=== PATIENT | female | born 1940 | race Caucasian/White ===

== ENCOUNTER 2016-07-21 07:00 | Emergency (ER) | payer OTHER ==
[~2016-07-21] VITALS: Ht 152.4 cm; Wt 77.1 kg
[2016-07-21] MEDS ORDERED: LEVOTHYROXINE100 MC1 PO (07:40)
[2016-07-21] MEDS ORDERED: ALLOPURINOL100 M1 PO (07:41)
[2016-07-21] MEDS ORDERED: LOSARTAN POTASS50 M1 PO (07:42)
[2016-07-21] MEDS ORDERED: RESTASIS1 EACH OPH (07:42)
[2016-07-21 08:18] LABS: ABSOLUTE BASOPHIL COUNT 0 /CUMM (0.0-0.2); ABSOLUTE EOSINOPHIL COUNT 0 /CUMM (0.0-0.7); ABSOLUTE GRANULOCYTE CT 10.4 /CUMM (1.4-6.5); ABSOLUTE LYMPH COUNT 0.9 /CUMM (1.2-3.4); ABSOLUTE MONOCYTE COUNT 0.2 /CUMM (0.10-0.60); BASOPHIL % 0.1 % (0.0-2.0); EOSINOPHIL % 0.1 % (0-5); HEMATOCRIT 38.3 % (37-47); MEAN CORPUSCULAR HGB 30.6 PG (27.0-31.0); MEAN CORPUSCULAR HGB CONC 33.3 G/DL (33.0-37.0); MEAN CORPUSCULAR VOLUME 91.9 FL (81.0-99.0); MEAN PLATELET VOLUME 9.2 FL (7.4-10.4); PLATELET COUNT 221 /CUMM (130-400); RBC DISTRIBUTION WIDTH 13.3 % (11.5-14.5); RED BLOOD CELL CT 4.17 /CUMM (4.20-5.40); WHITE BLOOD CELL COUNT 11.6 /CUMM (4.8-10.8)
--- NOTE | 2016-07-21 08:27 | ED GI/GU/ABDOMINAL COMPLAINT ---
History of Present Illness General Chief Complaint: Abdominal Pain/Flank Pain Stated Complaint: "PER PT ABD PAIN, VOMITING" Source: patient, family, old records Exam Limitations: no limitations Vital Signs & Intake/Output Vital Signs & Intake/Output Vital Signs Date Time Temp Pulse Resp B/P B/P Pulse O2 O2 Flow FiO2 Mean Ox Delivery Rate 07/21 1121 97.0 70 18 160/72 96 Room Air 07/21 0956 98.0 80 199/84 07/21 0906 97.0 84 24 193/83 100 Room Air 07/21 0744 84 190/100 07/21 0710 97.0 96 20 184/99 98 Room Air Allergies Coded Allergies: NO KNOWN ALLERGIES (12/09/11) Reconcile Medications Allopurinol 100 MG TABLET 1 TAB PO DAILY GOUT (Reported) Cyclosporine (Restasis) 0.05 % DROPERETTE 1 GTT OPH BID EYE PROBLEMS ( Reported) Levothyroxine Sodium 100 MCG TABLET 1 TAB PO DAILY THYROID HEALTH (Reported) Losartan Potassium 50 MG TABLET 1 TAB PO DAILY HEART HEALTH (Reported) Triage Note: PT TO ED C/O RUQ ABD PAIN SINCE LAST NIGHT. C/O FEELING CONSTIPATED AND "A LOT OF BELCHING". C/O N/V, DENIES DIARRHEA. PT STATES H/O GALLSTONES. Triage Nurses Notes Reviewed? yes LMP (ages 10-50): post menopausal ? n Is pt currently ? No Onset: Morning Duration: hour(s):, continues in ED, waxing and waning Timing: recent history Quality/Severity: aching, severe, vomiting Location: right upper quadrant Radiation: back Activities at Onset: none Prior Abdominal Problems: similar symptoms Past Sexual History: Unobtainable at this time No Modifying Factors: none Modifying Factors: Worsens With: movement, palpation. Associated Symptoms: abdominal pain, diarrhea, loss of appetite, nausea/vomiting HPI: 8 hours prior to admission patient developed moderate to severe right upper quadrant aching waxing and waning pain radiating to the back and umbilicus associated with anorexia nausea vomiting increased stooling. She denies fever chills chest pain cough shortness of breath headache dysuria rash bleeding. She reports having previous history of gallstones and this is the worst attack. Past History Travel History Traveled to [place] past 21 day No Medical History Any Pertinent Medical History? see below for history Cardiovascular: hypertension Gastrointestinal: GALLSTONES Endocrine: hypothyroidism Surgical History Surgical History: non-contributory Psychosocial History What is your primary language Chilean Tobacco Use: Quit >30 days ago ETOH Use: denies use Illicit Drug Use: denies illicit drug use Family History Hx Contributory? No Review of Systems Review of Systems Constitutional: Reports: see HPI, malaise. EENTM: Reports: no symptoms. Respiratory: Reports: no symptoms. Cardiovascular: Reports: no symptoms. GI: Reports: see HPI, abdominal pain, diarrhea, nausea, vomiting. Genitourinary: Reports: no symptoms. Musculoskeletal: Reports: no symptoms. Skin: Reports: no symptoms. Neurological/Psychological: Reports: no symptoms. Hematologic/Endocrine: Reports: no symptoms. Immunologic/Allergic: Reports: no symptoms. All Other Systems: Reviewed and Negative Physical Exam Physical Exam General Appearance: well developed/nourished, alert, awake, anxious, moderate distress, obese Head: atraumatic, normal appearance Eyes: Bilateral: normal appearance, PERRL, EOMI, normal inspection. Ears, Nose, Throat, Mouth: hearing grossly normal, moist mucous membrane Neck: normal inspection, supple, full range of motion, normal alignment Respiratory: normal breath sounds, chest non-tender, no respiratory distress, quiet respiration, lungs clear Cardiovascular: regular rate/rhythm, normal peripheral pulses, norml femoral pulses equa Peripheral Pulses: 4+ carotid (R), 4+ carotid (L) Gastrointestinal: normal bowel sounds, soft, tenderness Back: normal inspection, normal range of motion Extremities: normal range of motion, no ligament instability Neurologic/Psych: no motor/sensory deficits, awake, alert, oriented x 3, normal gait, normal mood/affect, senior technical analyst II-XII nml as tested Skin: intact, normal color, warm/dry Core Measures ACS in differential dx? No ASA ordered for poss ACS? No-ACS ruled out Severe Sepsis Present: No Septic Shock Present: No Progress Differential Diagnosis: biliary colic, cholecystitis, diverticulitis, gastritis Plan of Care: Orders Procedure Date/time Status LACTIC ACID 07/21 1045 Active Add-on Test (ER Only) 07/21 0811 Active TROPONIN LEVEL 07/21 0745 Complete LIPASE 07/21 0745 Complete LACTIC ACID 07/21 0745 Complete HEPATIC FUNCTION PANEL 07/21 0745 Complete CBC WITHOUT DIFFERENTIAL 07/21 0745 Complete BASIC METABOLIC PANEL 07/21 0745 Complete EKG 05/03 0712 Active URINALYSIS 07/21 708 Complete Laboratory Tests 07/21/16811: Anion Gap 14, Estimated GFR > 60, BUN/Creatinine Ratio 18.9, Glucose 161 H, Lactic Acid 1.9, Calcium 9.3, Total Bilirubin 0.4, Direct Bilirubin 0.3, AST 33, ALT 60 H, Alkaline Phosphatase 88, Troponin I < 0.01, Total Protein 7.3, Albumin 4.5, Lipase 47, CBC w Diff NO MAN DIFF REQ, RBC 4.17 L, MCV 91.9, MCH 30.6, RDW 13.3, MPV 9.2, Gran % 89.7 H, Lymphocytes % 8.1 L, Monocytes % 2.0, Eosinophils % 0.1, Basophils % 0.1, Absolute Granulocytes 10.4 H, Absolute Lymphocytes 0.9 L, Absolute Monocytes 0.2, Absolute Eosinophils 0, Absolute Basophils 0, PUBS MCHC 33.3 07/21/16708: Urinalysis LIGHT H, Urine Color YEL, Urine Clarity HAZY H, Urine pH 6.0, Ur Specific [place] 1.025, Urine Protein 100 H, Urine Ketones NEG, Urine Nitrite NEG, Urine Bilirubin NEG, Urine Urobilinogen 0.2, Ur Leukocyte Esterase NEG, Ur Microscopic SEDIMENT EXAMINED, Urine RBC 10-15 H, Urine WBC 1-3 H, Ur Epithelial Cells FEW, Urine Bacteria RARE H, Hyaline Casts RARE H, Urine Mucus RARE, Urine Hemoglobin MOD H, Urine Glucose NEG Diagnostic Imaging: Viewed by Me: Ultrasound. Discussed w/RAD: Ultrasound. Radiology Impression: Chronically contracted gallbladder with multiple gallstones. The findings are in keeping with chronic calculus cholecystitis. No pericholecystic fluid is seen. Initial ED EKG: normal axis, normal intervals, normal p-waves, normal QRS complex, normal sinus rhythm, no ST T wave changes Comments: Discussed with Dr. Caldera. Follow up outpatient. Departure Departure Time of Disposition: 1127 Disposition: HOME OR SELF CARE Condition: Stable Clinical Impression Primary Impression: Chronic cholecystitis with calculus Referrals: DONNA GASPAR,RON FARIAS MD,LULU Perez (PCP/Family) Departure Forms: Customer Survey General Discharge Information Prescriptions: Current Visit Scripts Hyoscyamine Sulfate (Levsin-Sl) 1-2 TAB SL Q4P PRN abdominal cramps #60 TAB Ondansetron (Zofran Odt) 1 TAB SL TID PRN nausea #15 TAB Oxycodone HCl/Acetaminophen (Percocet 5-325 MG Tablet) 1 TAB PO Q6P PRN severe pain #15 TAB ED Attending Observation Initial Observation Note: I have seen and personally examined KINJAL BROWER on 07/21/16 at 0940. I agree with the current emergency department documentation. The disposition (admission or discharge) is uncertain at this time, she needs a period of observation for the following reason(s): The ED Nurse caring for this patient has been personally informed as to what the patient is being observed for.
[2016-07-21 08:35] LABS: GRANULOCYTE % 89.7 % (42.2-75.2)
--- NOTE | 2016-07-21 10:29 | ULTRASOUND REPORT ---
EXAMINATION: US ABDOMEN LIMITED CLINICAL INFORMATION: Right upper quadrant pain radiating to back with nausea, vomiting and diarrhea.. COMPARISON: Similar examination right quadrant ultrasound 12/19/2009. Selected images of the abdomen from CT thorax 06/21/2016. TECHNIQUE: Real-time imaging of the right upper quadrant abdominal viscera. FINDINGS: PANCREAS: Largely obscured by bowel gas. Visualized head and body of the pancreas are unremarkable. LIVER: The liver is diffusely echogenic and difficult to penetrate. Findings are consistent with hepatic steatosis. The liver demonstrates normal size and contour. No focal lesion or intrahepatic biliary duct dilatation. GALLBLADDER: The gallbladder remains contracted with multiple shadowing calculi. The gallbladder wall is difficult to evaluate. No pericholecystic fluid is seen. The patient is reportedly tender over the gallbladder region at sonography. COMMON BILE DUCT: Not visualized. RIGHT KIDNEY: Normal in size and cortical thickness. No hydronephrosis. No renal calculi or solid parenchymal lesions. Simple lower pole renal cyst measures 2.4 x 2.4 x 2.6 cm. No internal color Doppler flow or septations. The kidney measures 10.0 cm in maximum dimension. FREE FLUID: None. IMPRESSION: Chronically contracted gallbladder with multiple gallstones. The findings are in keeping with chronic calculus cholecystitis. No pericholecystic fluid is seen. Diffusely echogenic liver is consistent with hepatic steatosis and unchanged from prior.
[2016-07-21 11:21] VITALS: BP 160/72
[2016-07-21] MEDS ORDERED: ZOFRAN ODT4 M1 SL ×2 (11:31→11:40)
[2016-07-21] MEDS ORDERED: LEVSIN-SL0.125 MG SL ×2 (11:31→11:40)
[2016-07-21] MEDS ORDERED: PERCOCET 5-3251 EACH PO ×2 (11:31→11:40)
== END 2016-07-21 11:51 ==
LOC: ERH 07:00
PROVIDERS: Emergency Medicine
DX: K80.10 Calculus of gallbladder with chronic cholecystitis without obstruction (principal)
CPT/HCPCS: 81001; 93005; 93010; 96374; 96375; J0131; J1885; J2405

== ENCOUNTER → 2016-08-11 | Day surgery (SDC) | payer OTHER ==
[~2016-08-11] VITALS: Ht 152.4 cm; Wt 73.5 kg
[~2016-08-11] MED LIST: ALLOPURINOL100 M1 PO; LEVOTHYROXINE100 MC1 PO; LEVSIN-SL0.125 MG SL; LOSARTAN POTASS50 M1 PO; PERCOCET 5-3251 EACH PO; RESTASIS1 EACH OPH; ZOFRAN ODT4 M1 SL
--- NOTE | 2016-08-11 14:29 | Operative Report ---
Operative/Inv Procedure Report Surgery Date: 08/11/16 Name of Procedure: Laparoscopic cholecystectomy Pre-Operative Diagnosis: Biliary colic Post-Operative Diagnosis: Same Estimated Blood Loss: scant Surgeon/Shortage Worker: DONNA GASPAR,RON Sumner/Ani BHATIA Anesthesia: general endotracheal tube Specimens: Gallbladder and stones Operative/Procedure Note Note: After informed consent patient is brought to the operating room and laid supine. General anesthesia was obtained and her abdomen was prepped and draped. The skin above the umbilicus infiltrated with local anesthesia and a curvilinear incision made sharply. We came down through the subcutaneous tissues bluntly and grasped the fascia with Devaughn's. A fasciotomy was created sharply and stay sutures placed. The peritoneum was entered sharply and a blunt Kevin port was placed. Pneumoperitoneum was achieved. 3, 5 mm ports were placed in the epigastrium and right upper quadrant after local anesthesia was instilled and under direct vision the camera. She's placed in reverse Trendelenburg and rotated towards the left. The gallbladder is identified. It was grasped at the dome and retracted towards the head. Infundibulum was then grasped. Adhesions to the undersurface were taken down with blunt and cautery dissection. We dissected both sides the triangle Calot peritoneal tissue with cautery. The artery was medial and its normal anatomic position. It was cauterized medially to allow it to be mobilized away from the duct. [place] was cleared of areolar tissue with cautery. The arteries and duct were doubly ligated with clips. Gallbladder is removed from the fossa electrocautery. It was placed in Endo Catch bag and cinched up. Right upper quadrant was and suction irrigated normal saline. Hemostasis achieved with cautery. The ports were then removed and the gallbladder delivered and passed off the field. In order to deliver the gallbladder, which was packed with stones, the fascia needed larger incision. The fascia was closed with interrupted 0 Vicryl suture. Skin incisions closed with 4-0 Vicryl. Steri-Strips and sterile dressing applied. Sponge and needle counts are correct. CC: JARRETT GASPAR,LULU Perez
== END ==
LOC: STS 07:00
DX: K80.10 Calculus of gallbladder with chronic cholecystitis without obstruction (principal); I10 Essential (primary) hypertension; M10.9 Gout, unspecified; Z87.891 Personal history of nicotine dependence
CPT/HCPCS: 88304; J0690; J2250

== ENCOUNTER 2017-04-23 23:25 | Day surgery (SDC) | payer OTHER ==
[~2017-04-23] VITALS: Ht 152.4 cm; Wt 75.8 kg
[2017-04-24 00:12] LABS: ABSOLUTE BASOPHIL COUNT 0 /CUMM (0.0-0.2); ABSOLUTE EOSINOPHIL COUNT 0 /CUMM (0.0-0.7); ABSOLUTE GRANULOCYTE CT 11.8 /CUMM (1.4-6.5); ABSOLUTE LYMPH COUNT 1.4 /CUMM (1.2-3.4); ABSOLUTE MONOCYTE COUNT 0.7 /CUMM (0.10-0.60); BASOPHIL % 0.1 % (0.0-2.0); EOSINOPHIL % 0.2 % (0-5); GRANULOCYTE % 84.7 % (42.2-75.2); HEMATOCRIT 40.4 % (37-47); MEAN CORPUSCULAR HGB 30.6 PG (27.0-31.0); MEAN CORPUSCULAR HGB CONC 33.5 G/DL (33.0-37.0); MEAN CORPUSCULAR VOLUME 91.4 FL (81.0-99.0); MEAN PLATELET VOLUME 9.2 FL (7.4-10.4); PLATELET COUNT 216 /CUMM (130-400); RBC DISTRIBUTION WIDTH 13.2 % (11.5-14.5); RED BLOOD CELL CT 4.42 /CUMM (4.20-5.40)
--- NOTE | 2017-04-24 00:41 | ED GI/GU/ABDOMINAL COMPLAINT ---
History of Present Illness General Chief Complaint: General Adult Stated Complaint: "LOWER ABD PAIN,+N-V+D" Source: patient Exam Limitations: no limitations Vital Signs & Intake/Output Vital Signs & Intake/Output Vital Signs Date Time Temp Pulse Resp B/P B/P Pulse O2 O2 Flow FiO2 Mean Ox Delivery Rate 04/24 0240 98.6 55 18 200/80 98 Room Air 04/24 0041 98 Room Air 04/23 2354 98.4 66 18 174/82 98 Room Air ED Intake and Output 04/24 0000 04/23 1200 Intake Total Output Total Balance Patient 167 lb Weight Weight Reported by Patient Measurement Method Allergies Coded Allergies: No Known Allergies (02/16/17) Reconcile Medications Allopurinol 100 MG TABLET 1 TAB PO BID gout (Reported) Cyclosporine (Restasis) 0.05 % DROPERETTE 1 GTT OPH BID EYE PROBLEMS ( Reported) Levothyroxine Sodium 100 MCG TABLET 1 TAB PO DAILY THYROID HEALTH (Reported) Losartan Potassium 50 MG TABLET 1 TAB PO BID blood pressure (Reported) Metoprolol Succinate 25 MG TAB 1 TAB PO BID blood pressure (Reported) Triage Note: PT TO ER C/C RLQ PAIN X 1 DAY, + NAUSEA. 1 EPISODE OF DIARRHEA YESTERDAY. DENIES FEVERS/CHILLS. DENIES URINARY S/S Triage Nurses Notes Reviewed? yes ? N Is pt currently ? No Onset: Abrupt Duration: day(s): (2) Timing: multiple episodes today Location: right lower quadrant Radiation: GENERALIZED ABDOMEN HPI: This is a 76-year-old female with history of hypertension, previous cholecystectomy in July 2016 who presents to the ER with chief complaint of right lower quadrant abdominal pain that began yesterday evening. She states the pain goes from her right lower quadrant into her generalized abdomen no fever or chills. She did feel nauseous. Yesterday she actually had some diarrhea which is unusual for her. She initially was not passing gas today but then started passing gas this evening. She has felt bloated and has burped a little bit better. She had a very poor appetite today with a little bit of soup of function one to 2 bites of a bagel this evening. History of colonoscopy every 5 years ago last was last year. She states they have been within normal limits. No other gastrointestinal history. Past History Travel History Traveled to [place] past 21 day No Medical History Any Pertinent Medical History? see below for history Cardiovascular: hypertension Gastrointestinal: GALLSTONES Endocrine: hypothyroidism Surgical History Surgical History: cholecystectomy Psychosocial History What is your primary language Citizen Of [place] Tobacco Use: Quit >30 days ago ETOH Use: occasional use Family History Hx Contributory? No Review of Systems Review of Systems Constitutional: Denies: chills, fever. EENTM: Reports: no symptoms. Respiratory: Denies: cough, short of breath. Cardiovascular: Denies: chest pain. GI: Reports: abdominal pain, constipation, bloody stool, changes in stool. Genitourinary: Denies: discharge, dysuria, frequency, hematuria. Musculoskeletal: Denies: back pain. Skin: Reports: no symptoms. Neurological/Psychological: Reports: no symptoms. Hematologic/Endocrine: Denies: bruising, bleeding, polyuria, polydipsia. Immunologic/Allergic: Denies: splenectomy. All Other Systems: Reviewed and Negative Physical Exam Physical Exam General Appearance: well developed/nourished, alert, awake, mild distress Head: atraumatic, normal appearance Eyes: Bilateral: normal appearance, PERRL, EOMI. Ears, Nose, Throat, Mouth: hearing grossly normal, moist mucous membrane Neck: normal inspection, supple, full range of motion Respiratory: normal breath sounds, chest non-tender, no respiratory distress Cardiovascular: regular rate/rhythm Peripheral Pulses: 2+ radial (R), 2+ radial (L) Gastrointestinal: soft, distention, tenderness (MILD RLQ), NO REBOUND/GUARDING Back: normal inspection, normal range of motion Extremities: normal range of motion Neurologic/Psych: no motor/sensory deficits, awake, alert, oriented x 3, normal gait, normal mood/affect Skin: intact, normal color, warm/dry Core Measures ACS in differential dx? No Sepsis Present: No Sepsis Focused Exam Completed? No Progress Differential Diagnosis: diverticulitis, SBO, COLITIS, KIDNEY STONE Plan of Care: Orders Procedure Date/time Status Nothing by Mouth 04/24 B Active Pathway - chart 04/24 335 Active Patient Data 04/24 335 Active Vital Signs 04/24 033 Active Intake & Output 04/24 033 Active Activity/Ambulation 04/24 335 Active LIPASE 04/24 335 Active Code Status 04/24 335 Active XRY-CHEST XRAY, TWO VIEWS 04/24 0307 Active EKG 04/24 0244 Active Add-on Test (ER Only) 04/24 0240 Active TYPE & SCREEN (NOT X-MATCH) 04/24 024 Active Add-on Test (ER Only) 04/24 0135 Active CULTURE,URINE 04/24 0028 Active PARTIAL THROMBOPLASTIN TIME 04/24 0004 Complete PROTHROMBIN TIME 04/[address] in observation 04/24 UNK Active VTE Mechanical Prophylaxis 04/24 UNK Active URINALYSIS 04/23 2331 Complete TROPONIN LEVEL 04/23 2331 Complete COMPREHENSIVE METABOLIC PANEL 04/23 2331 Complete CBC WITHOUT DIFFERENTIAL 04/23 2331 Complete Current Medications Sig/Tiffany Start time Last Medication Dose Stop Time Status Admin Allopurinol 100 MG BID 04/24 1000 UNVr (Zyloprim) Levothyroxine Sodium 0.1 MG DAILY 04/24 1000 UNVr (Synthroid) Losartan Potassium 50 MG BID 04/24 1000 UNVr (Cozaar) Metoprolol Succinate 25 MG BID 04/24 1000 UNVr (Toprol XL) Ampicillin Sodium/ 3,000 MG Q6 04/24 0900 UNVr Sulbactam Sodium 04/25 0859 (Unasyn) Sodium Chloride 100 ML (Normal Saline 0.9%) Heparin Sodium 5,000 UNIT Q8 04/24 0600 UNVr (Porcine) Morphine Sulfate 2 MG Q4P PRN 04/24 0345 UNVr (Morphine) Morphine Sulfate 4 MG Q4P PRN 04/24 0345 UNVr (Morphine) Sodium Chloride 1,000 ML Q10H 04/24 0345 UNVr (Normal Saline 0.9%) Sodium Chloride 1,000 ML ONCE ONE 04/24 0245 AC (Normal Saline 0.9%) 04/24 0924 Laboratory Tests 04/24/17 0028: Urinalysis LIGHT H, Urine Color YEL, Urine Clarity HAZY H, Urine pH 6.0, Ur Specific [place] 1.025, Urine Protein 100 H, Urine Ketones NEG, Urine Nitrite NEG, Urine Bilirubin NEG, Urine Urobilinogen 0.2, Ur Leukocyte Esterase SMALL H , Ur Microscopic SEDIMENT EXAMINED, Urine RBC 1-3, Urine WBC 5-10 H, Ur Epithelial Cells RARE, Urine Bacteria FEW H, Urine Mucus FEW, Urine Hemoglobin MOD H, Urine Glucose NEG 04/24/17 0004: Anion Gap 16, Estimated GFR 54 L, BUN/Creatinine Ratio 18.0, Glucose 134 H, Calcium 9.6, Total Bilirubin 0.5, AST 22, ALT 38, Alkaline Phosphatase 85, Troponin I < 0.01, Total Protein 7.1, Albumin 4.5, Globulin 2.6, Albumin/ Globulin Ratio 1.7, PT 11.2, INR 1.07, APTT 31, CBC w Diff NO MAN DIFF REQ, RBC 4.42, MCV 91.4, MCH 30.6, MCHC 33.5, RDW 13.2, MPV 9.2, Gran % 84.7 H, Lymphocytes % 10.3 L, Monocytes % 4.7, Eosinophils % 0.2, Basophils % 0.1, Absolute Granulocytes 11.8 H, Absolute Lymphocytes 1.4, Absolute Monocytes 0.7 H, Absolute Eosinophils 0, Absolute Basophils 0 Microbiology 04/24 0028 URINE ROUT: Urine Culture - RECD CT C/W APPENDICITIS. IV UNASYN, MORPHINE ORDERED. D/W DR THOMPSON AND SURGICAL PA WAYLON. Diagnostic Imaging: Viewed by Me: CT Scan. Discussed w/RAD: CT Scan. Radiology Impression: PATIENT: KINJAL BROWER PRESENT AGE: 76 PATIENT ACCOUNT NO: [id number] : 41 LOCATION: [facility] ORDERING PHYSICIAN: Apryl Villanueva MD SERVICE DATE: 04/24/17 EXAM TYPE: CAT - CT ABD & PELVIS W IV CONTRAST EXAMINATION: CT ABDOMEN AND PELVIS WITH CONTRAST CLINICAL INFORMATION: Right lower quadrant pain. Abdominal bloating. COMPARISON: CT scan abdomen November 30, 2005 TECHNIQUE: Multidetector volumetric imaging was performed of the abdomen and pelvis following IV administration of 95 mL of Optiray 320 intravenous contrast. Sagittal and coronal reformatted images were obtained on the technologist's workstation. DLP: 333.59 mGy-cm FINDINGS: LUNG BASES: The visualized lung bases are unremarkable. LIVER, GALLBLADDER, AND BILIARY TREE: The liver is normal in size, shape, and attenuation. No focal hepatic lesion or biliary ductal dilatation is present. Status post cholecystectomy. PANCREAS: Unremarkable. SPLEEN: Unremarkable. ADRENAL GLANDS: Unremarkable. KIDNEYS AND URETERS: Multiple bilateral renal cysts. No renal or ureteral calculi. No hydronephrosis. BLADDER: Unremarkable. GASTROINTESTINAL TRACT: The appendix is dilated and edematous. There is edema in the periappendiceal fat. Changes of appendicitis. Appendix measures 1.3 cm in diameter. No evidence of perforation. No abscess. No acute change of the bowel. No bowel obstruction. No bowel wall thickening or edema. ABDOMINAL WALL: Small fat-containing umbilical hernia LYMPH NODES: Normal. VASCULAR: Unremarkable. PELVIC VISCERA: Uterus is anteverted. Multiple fibroids within uterus. There are scattered calcifications in the uterus. No adnexal abnormality. OSSEOUS STRUCTURES: Unremarkable. IMPRESSION: Appendicitis. DICTATED BY: Tobias Castaneda MD DATE/TIME DICTATED:04/24/17221 TECHNICAL APPLICATIONS SCIENTIST:VIRIDIANA DATE/TIME TRANSCRIBED:04/24/17221 CONFIDENTIAL, DO NOT COPY WITHOUT APPROPRIATE AUTHORIZATION. <Electronically signed in Other Vendor System> SIGNED BY: Tobias Castaneda MD 04/24/17228 Initial ED EKG: SINUS BRADYCARDIA @ 55 BPM Prior EKG: changed Departure Departure Disposition: STILL A PATIENT Condition: Stable Clinical Impression Primary Impression: Appendicitis Referrals: Levin Ibrahima GASPAR (PCP/Family) Departure Forms: Customer Survey General Discharge Information Observation Note Spoke With: Rob GASPAR,Cedric Sumner Physician Advisor Notified: JADYN DIALLO DO Place Patient In: Non-ED OBS Care Area Rationale for Observation: My rational for observation is as follows [IV FLUIDS, IV ABX, PAIN CONTROL, NPO, TO GO TO OR FOR APPENDECTOMY IN AM]. OR/GI Note ED Treatment Decision: KINJAL BROWER requires urgent operative management or an emergent procedure that cannot be performed in the Emergency Room setting.
--- NOTE | 2017-04-24 02:29 | CT SCAN REPORT ---
EXAMINATION: CT ABDOMEN AND PELVIS WITH CONTRAST CLINICAL INFORMATION: Right lower quadrant pain. Abdominal bloating. COMPARISON: CT scan abdomen November 30, 2005 TECHNIQUE: Multidetector volumetric imaging was performed of the abdomen and pelvis following IV administration of 95 mL of Optiray 320 intravenous contrast. Sagittal and coronal reformatted images were obtained on the technologist's workstation. DLP: 333.59 mGy-cm FINDINGS: LUNG BASES: The visualized lung bases are unremarkable. LIVER, GALLBLADDER, AND BILIARY TREE: The liver is normal in size, shape, and attenuation. No focal hepatic lesion or biliary ductal dilatation is present. Status post cholecystectomy. PANCREAS: Unremarkable. SPLEEN: Unremarkable. ADRENAL GLANDS: Unremarkable. KIDNEYS AND URETERS: Multiple bilateral renal cysts. No renal or ureteral calculi. No hydronephrosis. BLADDER: Unremarkable. GASTROINTESTINAL TRACT: The appendix is dilated and edematous. There is edema in the periappendiceal fat. Changes of appendicitis. Appendix measures 1.3 cm in diameter. No evidence of perforation. No abscess. No acute change of the bowel. No bowel obstruction. No bowel wall thickening or edema. ABDOMINAL WALL: Small fat-containing umbilical hernia LYMPH NODES: Normal. VASCULAR: Unremarkable. PELVIC VISCERA: Uterus is anteverted. Multiple fibroids within uterus. There are scattered calcifications in the uterus. No adnexal abnormality. OSSEOUS STRUCTURES: Unremarkable. IMPRESSION: Appendicitis.
[2017-04-24 03:09] LABS: PT 11.2 SEC (9.4-12.5); PTT 31 SEC (25-37)
--- NOTE | 2017-04-24 03:29 | History & Physical Pre-Op ---
Yoselyn Ramos 04/24/17 0322: General Information and HPI MD Statement: I have seen and personally examined KINJAL BROWER and documented this H&P. The patient is a 76 year old F who presented with a patient stated chief complaint of [abdominal pain]. Source of Information: patient Exam Limitations: no limitations History of Present Illness: 76yo female presents to the ED with abdominal pain. She admits to having pain in the right lower abdomen since 11 am Tuesday morning (currently 3 am Tuesday). Pain began and stayed in the same area. Worse when lying down. No associated nausea but she has not felt like eating. She had a bagal about 12 hours ago and couldn't finish it. THat is her only po intake over the past 24 hrs except for some water last night. +diiarrhea on Tuesday is last BM, +flatus No fever or chills are noted No other symptoms Allergies/Medications Allergies: Coded Allergies: No Known Allergies (02/16/17) Past History Medical History Cardiovascular: hypertension Gastrointestinal: GALLSTONES Musculoskeletal: gout Endocrine: hypothyroidism Surgical History Pertinent Surgical History: cholecystectomy Past Family/Social History Psychosocial History Where Do You Live? Home ETOH Use: occasional use Functional Ability ADLs Independent: dressing, eating, toileting, bathing. Review of Systems Review of Systems: See HPI Exam & Diagnostic Data Last 24 Hrs of Vital Signs/I&O Vital Signs Date Time Temp Pulse Resp B/P B/P Pulse O2 O2 Flow FiO2 Mean Ox Delivery Rate 04/24 0240 98.6 55 18 200/80 98 Room Air 04/24 0041 98 Room Air 04/23 2354 98.4 66 18 174/82 98 Room Air Intake & Output 04/24 0800 04/24 0000 04/23 1600 Intake Total 1000 Output Total Balance 1000 Intake, IV 1000 Intake, Oral 0 Patient 167 lb Weight Weight Reported by Patient Measurement Method Physical Exam: General: alert and oriented times three Chest: clear anteriorly bilaterally, RRR Abd: soft, nondistended, tender to even mild palpation at RLQ, cannot assess stone due to tenderness, well healed lap artis scars Ext: warm, no edema Diagnostic Data Other Results CT Abd/pelvis GASTROINTESTINAL TRACT: The appendix is dilated and edematous. There is edema in the periappendiceal fat. Changes of appendicitis. Appendix measures 1.3 cm in diameter. No evidence of perforation. No abscess. Assessment/Plan Assessment/Plan: 76yo female with appendicitis -no evidence of perforation - stable Discussed with Dr Rivas ivf npo unasyn manage bp - will discuss with ED doc plan for OR first thing in AM As Ranked By This Provider Problem List: 1. Appendicitis Copies To: Rob GASPAR,Cedric Rivas MD,Cedric Sumner 04/24/17 0938: General Information and HPI Allergies/Medications Home Med list Allopurinol 100 MG TABLET 1 TAB PO BID gout (Reported) Cyclosporine (Restasis) 0.05 % DROPERETTE 1 GTT OPH BID EYE PROBLEMS ( Reported) Levothyroxine Sodium 100 MCG TABLET 1 TAB PO DAILY THYROID HEALTH (Reported) Losartan Potassium 50 MG TABLET 1 TAB PO BID blood pressure (Reported) Metoprolol Succinate 25 MG TAB 1 TAB PO BID blood pressure (Reported) Attending MD Review Statement Attending Statement Attending MD Statement: examined this patient, discuss w/resident/PA/AUDIO DIRECTOR, reviewed images Attending Assessment/Plan: 76 yo woman known to me from prior surgery. She presents with relatively classic constellation of signs and symptoms of appendicitis. CT confirms diagnosis. PLan IV broad spectrum antibiotics and prompt laparoscopic appendectomy. Informed of risks of surgery including bleeding, infection and medical complications related to general anesthesia. She agrees.
[2017-04-24] MEDS ORDERED: METOPROLOL SUCC25 M1 PO (03:30)
--- NOTE | 2017-04-24 04:10 | RADIOLOGY REPORT ---
EXAMINATION: XR CHEST CLINICAL INFORMATION: Preop. COMPARISON: Chest x-ray February 16, 2017 TECHNIQUE: 2 views of the chest were obtained. FINDINGS: Lungs are clear. No pulmonary vascular congestion. There is no pleural effusion. The heart size is normal. The cardiac and mediastinal contours are normal. There are multilevel degenerative changes of dorsal spine. IMPRESSION: Unremarkable examination.
[2017-04-24 07:51] VITALS: BP 184/77
--- NOTE | 2017-04-24 10:24 | Operative Report ---
Operative/Inv Procedure Report Surgery Date: 04/24/17 Name of Procedure: Laparoscopic appendectomy Pre-Operative Diagnosis: Acute appendicitis Post-Operative Diagnosis: Same Estimated Blood Loss: scant Surgeon/Oil Tester: Rob GASPAR,Cedric Sumner/Rudy BHATIA Anesthesia: general endotracheal tube Drains: None Specimens: Appendix Operative Indication: 76-year-old woman with right lower quadrant abdominal pain and leukocytosis. She has CT scan confirmed appendicitis Operative/Procedure Note Note: After consent patient is brought to the operating room and laid supine. General anesthesia was obtained his abdomen was prepped and draped. Skin above the umbilicus was after local anesthesia a curvilinear incision made sharply. We dissected through subcutaneous tissues tissues bluntly and identified the fascia. It was grasped with Devaughn's and a fasciotomy created sharply. The peritoneum was entered sharply and a blunt Kevin port was placed. Pneumoperitoneum was achieved. 2, 5 mm ports were placed in the suprapubic region and left lower quadrant, after local anesthesia was instilled and under direct vision the camera. Patient placed in Trendelenburg and rotated towards the left. The abdomen was explored. The appendix was encased by terminal ileum. The ileum was peeled off bluntly thus exposing a markedly distended but not perforated appendix. The base was supple and was grasp. The attachments laterally were taken down with blunt and cautery dissection. A window in the mesentery was developed with a [place] dissector. The mesentery was then taken with the Endo GISELL Castro load. The base was divided with Endo GISELL Castro load. Appendix was placed in Endo Catch bag and cinched up. Right lower quadrant and pelvis were suction irrigated normal saline. Hemostasis was adequate. Ports then removed and appendix delivered and passed off the field. The fascia was closed 0 Vicryl suture. Skin incisions closed with 4-0 Vicryl. Steri-Strips and sterile dressing applied. Sponge and needle counts are correct CC: Ollie GASPAR,Ibrahima Perez
== END 2017-04-24 ==
LOC: ERH 23:25 → ERHI 04-24 03:39 → ENRESERV 04-24 06:42 → STS 04-24 09:12 → ERHI 04-24 10:15
PROVIDERS: Emergency Medicine; Physician Assistant Medical
DX: C7A.020 Malignant carcinoid tumor of the appendix (principal); I10 Essential (primary) hypertension; E03.9 Hypothyroidism, unspecified; M10.9 Gout, unspecified; D72.829 Elevated white blood cell count, unspecified; R10.31 Right lower quadrant pain
CPT/HCPCS: 71046; 74177; 81001; 87086; 93005; 93010; 96361; 96374; 96375; C9399; J0131; J1644; J2250; J2405; J3010